=== PATIENT | male | born 1995 | race Caucasian/White ===

== ENCOUNTER 2017-12-15 03:32 | Emergency (ER) | payer MEDICAID, OTHER ==
[2017-12-15] MEDS ORDERED: HYDROcodone/Acetaminophen 10/325 mg Tablet ONE (03:59)
--- NOTE | 2017-12-15 10:03 | RAD ---
LEFT ANKLE 4 VIEWS: Date: 12/15/17 HISTORY: Ankle injury. FINDINGS: There is soft tissue swelling around the ankle. Question of a small joint effusion. Slight irregulari ty to the anterior margin of the tibia, felt to be more likely on the basis of an older injury. Ther e is small avulsion off the dorsal aspect of the navicular. IMPRESSION: Soft tissue swelling around the ankle. There appears to be more of an acute avulsive injury off the d orsal aspect of the navicular near the talonavicular joint. POS: [facility]
--- NOTE | 2017-12-15 11:55 | CT ---
PRELIMINARY REPORT/[facility]/EMERGENCY AFTER HOURS PROCEDURE: EXAM: CT Left Lower Extremity Without Intravenous Contrast EXAM DATE/TIME: Exam ordered 12/15/2017 4:23 AM CLINICAL HISTORY: 22 years old, male; Injury or trauma; Injury Jumped fence landing on heel; Initial encounter; Blunt t rauma; Left TECHNIQUE: Axial computed tomography images of the left lower extremity without intravenous contrast. All CT sca ns at this facility use one or more dose reduction techniques, viz.: automated exposure control; ma/k V adjustment per patient size (including targeted exams where dose is matched to indication; i.e. hea d); or iterative reconstruction technique. COMPARISON: No relevant prior studies available. FINDINGS: Bones/joints: Acute fractures of the posteromedial talus and a small fragment of the anteromedial becki us. Small acute comminuted fracture of the lateral aspect of the navicular. There may also be a subtl e small cortical fracture of the posteromedial aspect of the cuboid. No dislocation. Soft tissues: Contusion and hematoma of the subcutaneous tissue of the ankle and proximal foot. IMPRESSION: Acute fractures of the posteromedial talus and a small fragment of the anteromedial talus. Small acut e comminuted fracture of the lateral aspect of the navicular. There may also be a subtle small cortic al fracture of the posteromedial aspect of the cuboid. Thank you for allowing us to participate in the care of your patient. Dictated and Authenticated by: Luis Barnett MD 12/15/2017 5:55 AM Central Time ([place] & [place]) FINAL REPORT EMERGENCY AFTER HOURS CT OF LEFT ANKLE PERFORMED WITHOUT CONTRAST ENHANCEMENT: Date: 12/15/17 HISTORY: Trauma to ankle. FINDINGS: There is soft tissue swelling around the ankle. There is some anterior tibial spur formation suggesti ng older injury. There are some small avulsive fractures along the posteromedial corner of the talus. This is just along the more inferior margin of the talar dome. These findings appear acute. There ar e also some small avulsion fractures on the lateral side of the navicular, also probably acute avulsi ve injuries. There is what appears to be a tiny old versus new avulsion of the dorsal surface of the cuboid at the calcaneal cuboid joint. There is some spurring of the talonavicular joint. Lisfranc lig ament appears intact. IMPRESSION: Small avulsive injuries as discussed above. This report is in agreement with the preliminary report issued by [facility]. POS: [facility]
== END 2017-12-15 05:33 | disposition home or self-care (01) ==
LOC: BURERS 03:32
DX: S92.252A Displaced fracture of navicular [scaphoid] of left foot, initial encounter for closed fracture (principal); S92.132A Displaced fracture of posterior process of left talus, initial encounter for closed fracture; S92.212A Displaced fracture of cuboid bone of left foot, initial encounter for closed fracture; F31.9 Bipolar disorder, unspecified; F25.9 Schizoaffective disorder, unspecified; F17.200 Nicotine dependence, unspecified, uncomplicated; W17.89XA Other fall from one level to another, initial encounter
CPT/HCPCS: 29515

== ENCOUNTER 2018-04-26 20:48 | Emergency (ER) | payer OTHER, SELFPAY ==
[2018-04-26] MEDS ORDERED: Lidocaine 1% PF 5 ML VIAL ONE (21:03)
[2018-04-26] MEDS ORDERED: cefTRIAXone\\ROCEPHIN 500 MG VIAL ONE (21:03)
[2018-04-26] MEDS ORDERED: Phenazopyridine HCl 97.5 MG TABLET ONE (21:03)
== END 2018-04-26 21:09 | disposition home or self-care (01) ==
LOC: BURERS 20:48
DX: A54.00 Gonococcal infection of lower genitourinary tract, unspecified (principal); F17.210 Nicotine dependence, cigarettes, uncomplicated
CPT/HCPCS: 96372; J0696; J2001

== ENCOUNTER 2019-01-20 20:55 | Emergency (ER) | payer MEDICAID, SELFPAY | END 2019-01-20 21:00 | disposition home or self-care (01) | LOC: BURERS 20:55 | DX: R36.9 Urethral discharge, unspecified (principal); F17.210 Nicotine dependence, cigarettes, uncomplicated | CPT/HCPCS: 99281 ==

== ENCOUNTER 2019-01-30 14:43 | Emergency (ER) | payer SELFPAY ==
[2019-01-30] MEDS ORDERED: Azithromycin 250 MG TAB ONE (15:14)
[2019-01-30] MEDS ORDERED: cefTRIAXone\\ROCEPHIN 500 MG VIAL ONE (15:14)
[2019-01-30] MEDS ORDERED: Lidocaine 1% PF 5 ML VIAL ONE (15:16)
[2019-01-30 15:26] LABS: Bilirubin Negative (Negative); Blood, Urine Trace (Negative); Clarity Hazy (Clear); Glucose, Urine (Dipstick) Negative (Negative); Leukocyte Moderate (Negative); Nitrite Negative (Negative); Protein, Urine (Dipstick) 30 mg/dL (Neg-Trace); Urobilinogen 0.2 mg/dL (Less than 2)
[2019-01-30 15:27] LABS: Bacteria/HPF None Seen HPF (None Seen); Other Microscopic Description C&S SET UP; RBC/HPF 0-3 HPF (0-3); Squamous Epithelial 0-3 HPF (0-3); WBC/HPF Greater Than 50 HPF (0-3)
[2019-02-02 00:06] LABS: Chlam.trachomatis by PCR,Urine Not Detected (NotDetected)
== END 2019-01-30 15:31 | disposition home or self-care (01) ==
LOC: BURERS 14:43
DX: N34.1 Nonspecific urethritis (principal); F17.210 Nicotine dependence, cigarettes, uncomplicated
CPT/HCPCS: 81003; 81015; 87086; 87491; 87591; 96372; 99283; J0696; J2001

== ENCOUNTER → 2020-01-08 | Emergency (ER) | payer MEDICAID, SELFPAY ==
[~2020-01-08] MED LIST: Acetaminophen 325 MG TAB ONE
[2020-01-08 20:37] LABS: #Basophils 0.1 thou/uL (0.0-0.2); #Eosinphils 0.3 thou/uL (0.0-0.7); #Lymphocytes 1.9 thou/uL (1.20-3.40); #Monocytes 0.5 thou/uL (0.11-0.59); #Neutrophils 3.6 thou/uL (1.40-6.50); %Basophils 1.9 % (0.0-1.0); %Eosinophils 4.6 % (0.0-10.0); %Lymphocytes 30.5 % (21.0-51.0); %Monocytes 7.3 % (0.0-10.0); %Neutrophils 55.8 % (42.0-75.0); Hemoglobin 14.2 g/dL (14.0-18.0); Mean Corpuscular HGB CONC 31.6 g/dL (32.0-36.0); Mean Corpuscular Hemoglobin 31.2 pg (27.0-31.0); Mean Corpuscular Volume 98.5 fL (78.0-98.0); Mean Platelet Volume 10.7 fL (7.4-10.4); Platelet Count 151 thou/uL (130-400); RBC Distribution Width 11.2 % (11.5-14.5); Red Blood Cell (RBC) Count 4.55 mill/uL (4.70-6.10); White Blood Cell (WBC) Count 6.4 thou/uL (4.8-10.8)
[2020-01-08 20:53] LABS: ALT (SGPT) 18 U/L (8-55); AST (SGOT) 20 U/L (5-34); Acetaminophen Less than 6.0 mcg/mL (10.0-30.0); Albumin 4.3 g/dL (3.5-5.0); Alcohol 127 mg/dL (Less than 10); Alkaline Phosphatase 83 U/L (40-110); Anion Gap 17 mmol/L (10-20); BUN (Urea Nitrogen) 9 mg/dL (8.9-20.6); Bilirubin, Total 0.2 mg/dL (0.2-1.2); Calc. Creatinine Clearance 0 mL/min (70-130); Calcium 9.3 mg/dL (7.8-10.44); Carbon Dioxide 23 mmol/L (22-29); Chloride 110 mmol/L (98-107); Estimated GFR-MDRD 86; Globulin 2.7 g/dL (2.4-3.5); Glucose 102 mg/dL (70-105); Potassium 3.8 mmol/L (3.5-5.1); Salicylate Less than 8.0 mg/dL (15.0-30.0); Sodium 146 mmol/L (136-145)
[2020-01-08 21:59] LABS: Bilirubin Negative (Negative); Blood, Urine Negative (Negative); Clarity Slightly Cloudy (Clear); Glucose, Urine (Dipstick) Negative (Negative); Ketone, Urine Trace mg/dL (Negative); Leukocyte Negative (Negative); Nitrite Negative (Negative); Protein, Urine (Dipstick) Negative (Neg-Trace); Urobilinogen 0.2 mg/dL (Less than 2)
[2020-01-08 22:00] LABS: Specific Gravity, Urine 1.029 (1.002-1.036)
[2020-01-08 22:16] LABS: Amphetamine Not Detected (NotDetected); Barbiturates Screen Not Detected (NotDetected); Benzodiazepine Screen Not Detected (NotDetected); Cocaine Metabolite Screen Not Detected (NotDetected); Medtox Control Line Valid? VALID (VALID); Methadone Not Detected (NotDetected); Methamphetamine Not Detected (NotDetected); Opiate Screen Not Detected (NotDetected); Oxycodone Screen Not Detected (NotDetected); Phencyclidine (PCP) Not Detected (NotDetected); THC/Cannabinoid Screen Detected (NotDetected); Tricyclic Screen Not Detected (NotDetected)
== END ==
LOC: BURERS 20:02
DX: R45.851 Suicidal ideations (principal); F31.9 Bipolar disorder, unspecified; F41.9 Anxiety disorder, unspecified; F17.200 Nicotine dependence, unspecified, uncomplicated
CPT/HCPCS: 80053; 80306; 80307; 81003; 85025; 99285